=== PATIENT | female | born 2005 | race Caucasian/White ===

== ENCOUNTER → 2023-05-31 14:50 | Outpatient (REF) | payer BC, SELFPAY | LOC: HWRAD 14:50 | PROVIDERS: ATTENDING PHYSICIAN Pediatrics | DX: R63.4 Abnormal weight loss (principal) | CPT/HCPCS: 74177; Q9967 ==

== ENCOUNTER 2024-07-14 11:19 | Emergency (ER) | payer BC, SELFPAY ==
[2024-07-14 11:21] VITALS: BP 121/85
[2024-07-14 11:49] LABS: % Basophils 0.4 % (0-2); % Eosinophils 0.8 % (0-6); % Immature Granulocytes 0.2 % (0-0.5); % Lymphocytes 29.8 % (20.5-51.1); % Monocytes 7.4 % (1.7-9.3); % Neutrophils 61.4 % (42.2-75.2); Absolute Eosinophils 0.1 10^3/uL (0-0.7); Absolute Lymphocytes 2.7 10^3/uL (1.2-3.4); Absolute Monocytes 0.7 10^3/uL (0.1-0.6); Absolute Neutrophils 5.5 10^3/uL (1.4-6.5); Hematocrit 38.3 % (37.0-47.0); Mean Corp Hgb Conc. 33.9 g/dL (33.0-37.0); Mean Corpuscular Hgb 28.4 pg (27.0-31.0); Mean Corpuscular Volume 83.6 fL (81.0-99.0); Mean Platelet Volume 10.1 fL (7.4-10.4); Nucleated Red Blood Cells % 0 %; Platelet Count 197 10^3/uL (130-400); Red Blood Cell Count 4.58 10^6/uL (4.20-5.40); Red Cell Dist. Width 12.3 % (11.5-14.5); White Blood Cell Count 8.9 10^3/uL (4.8-10.8)
[2024-07-14 12:01] LABS: HCG, Serum Qualitative Screen Negative
[2024-07-14 12:05] LABS: ALT (SGPT) 13 U/L (0-35); AST (SGOT) 18 U/L (14-36); Albumin 4.2 g/dl (3.5-5.0); Alkaline Phosphatase 46 U/L (38-126); Blood Urea Nitrogen 14 mg/dl (7-17); Calcium 9.4 mg/dl (8.4-10.2); Carbon Dioxide 26 mmol/L (22-30); Chloride 110 mmol/L (98-107); Glucose 68 mg/dl (70-99); Potassium 3.9 mmol/L (3.5-5.1); Sodium 141 mmol/L (135-145); Total Bilirubin 0.9 mg/dl (0.2-1.3); Total Protein 6.9 g/dl (6.3-8.2); eGFR > 60.00
[2024-07-14 12:13] LABS: Urine Albumin Negative (Neg - Trace); Urine Bilirubin Negative (Negative); Urine Character Clear (Clear); Urine Color Yellow; Urine Glucose Negative (Negative); Urine Ketone Negative (Negative); Urine Leukocyte 3+ (Negative); Urine Nitrite Negative (Negative); Urine Occult Blood 2+ (Negative); Urine Urobilinogen Negative (Neg - 1+)
[2024-07-14 13:17] LABS: Urine Squamous Cell 16-20 /LPF (Few)
[2024-07-14 13:18] LABS: Urine Amorphous Seen
[2024-07-14 13:19] LABS: Urine Red Blood Cell 0-2 /HPF (0-2)
--- NOTE | 2024-07-14 13:21 | ED.GENMED ---
History of Present Illness
General
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
Source: patient
Exam Limitations: none
Time Seen by Provider: 07/14/24 12:05
Nursing documentation reviewed up to this point in time: agreed with
History of Present Illness
History of Present Illness:
Patient is a 18-year-old female presenting to the emergency department for evaluation of vaginal bleeding. Patient states she had sex with first time on Saturday night preceding onset of vaginal bleeding. She reports that immediately following
intercourse she had significant bright red bleeding. Bleeding has slowed down although she reports persistent spotting over the past few days. She denies any abdominal pain, pelvic pain, vaginal discomfort. She denies any
lightheadedness/dizziness or shortness of breath.
Patient has never been seen by an [facility]FACT[employer]ING TECHNICIAN. She did contact her therapist occupational who recommended she come to the emergency department for further evaluation.
LMP 2 weeks ago.
Review of Systems
Review of Systems
Allergies reviewed?: Yes
All Other Systems: ROS reviewed and negative except as documented in HPI and ROS
Phy Exam
Physical Exam
Physical Exam:
Vitals: Tachycardic on arrival, otherwise vital signs stable. Afebrile
General: Patient is well appearing, no acute distress
Skin: Warm and dry, no rashes or lesions
Head: Normocephalic, atraumatic
Eyes: Sclera nonicteric.
Throat: Protecting airway
Neck: Normal ROM, no cervical spine tenderness, no meningismus
Cardiac: Regular rate and rhythm, no murmurs.
Pulm: Lungs clear bilaterally.
.
Abdomen: Abdomen soft and nontender. No rebound tenderness or guarding. No palpable masses.
Pelvic: External genitalia normal appearing without lesions, ulcerations, or adenopathy. No active bleeding from vaginal introitus. Patient unable to tolerate speculum exam due to discomfort. Bimanual exam deferred by patient
Extremities: No evidence of cyanosis or edema
Neuro: AAOx3. Grossly intact.
Psychiatric: Normal affect.
Course
Orders/Labs/Results
Orders:
Orders
07/14/24 11:26
Test Result ONCE
07/14/24 11:39
Complete Blood Count/With Diff Urgent
Comprehensive Metabolic Panel Urgent
HCG, Serum Qualitative Screen Urgent
Urinalysis Reflex To Culture Urgent
Date Specimen was Collected: 07/14/24
Time Specimen was Collected: 11:
Urine Microscopic Reflex Cult Urgent
Urine Culture Urgent
JUAN Source: U
Specimen Description:
Date Specimen was Collected: 07/14/24
Time Specimen was Collected: 11:
Abnormal Lab Results
07/14/24
11:39
Absolute Monos (auto) 0.7 H 10^3/uL
(0.1-0.6)
Chloride 110 H mmol/L
(98-107)
Glucose 68 L mg/dl
(70-99)
Ur Occult Blood Reflex 2+ A
(Negative)
Leukocyte Esterase Rfl 3+ A
(Negative)
07/14/24 11:39
07/14/24 11:39
Vital Signs
Initial and Last Documented VS:
Initial Vital Signs
Temp Pulse Resp BP Pulse Ox
97.6 F 113 16 121/85 100
07/14/24 11:21 07/14/24 11:21 07/14/24 11:21 07/14/24 11:21 07/14/24 11:21
Last Documented Vital Signs
Temp Pulse Resp BP Pulse Ox
97.6 F 113 16 121/85 100
07/14/24 11:21 07/14/24 11:21 07/14/24 11:21 07/14/24 11:21 07/14/24 11:21
MDM/Problems Addressed
Differential Diagnosis Includes:
Not limited to: Hymen rupture, vaginitis, cervicitis, cervical ectropion, vaginal laceration, cervical laceration, etc.
MDM/Problems Addressed:
18-year-old female with vaginal spotting X2 days following intercourse. This started following patient's first time having sexual intercourse. She had heavier bleeding immediately following intercourse although now with spotting. No fevers, chills,
urinary symptoms. No abdominal pain, pelvic pain, or vaginal discomfort. Patient describes spotting as light. Vitals stable. Physical exam as above. Patient well appearing, in no distress. Abdomen soft and nontender with no tenderness in pelvic
region. Basic labs were sent in triage without significant abnormalities. test negative urine without significant findings. Patient not describing heavy bleeding. Suspect likely secondary to minor trauma/hymen rupture during intercourse.
However � will perform pelvic exam.
Update: Patient unable to tolerate speculum exam in ED secondary to discomfort. She declined bimanual exam. She has never had pelvic exam before. External genitalia without any obvious abnormalities. No visible bleeding from vaginal introitus. No
obvious signs of trauma. Overall impression is likely minor bleeding secondary to minor trauma/hymen rupture from first time intercourse. Unable to completely exclude more serious etiology, including cervical ectropion, cervical polyp, laceration,
etc. She will require follow-up with OBGYN for pelvic exam/further evaluation an routine OBGYN care. Patient expressed verbal understanding. Return precautions discussed.
Chronic conditions affecting care:
N/A
Acute Exacerbation and/or Progression of Chronic Illness:
N/A
*Pulse Oximetry
Patient hypoxic: no
*EKG
Interpreted by ED Provider?: NA
*Mechanic Driver Interpretation
Rate: Mechanic Driver- N/A
*Critical Care Note
Total Time (30-74mins, 75-104mins- exclusive of procedures): Not Applicable
ED Attending Note
-
Portions of this chart may have been created with voice recognition software.� Occasional wrong word or��sound alike� substitutions may have occurred due to the inherent limitations of voice recognition software.
Discharge Plan
Departure
Patient Disposition: Home (Routine Discharge)
Date of Disposition: 07/14/24
Time of Disposition: 14:00
Patient with high blood pressure during this ER visit?: No
Condition: Good
Covid-19: Not Applicable
Discharge Problem:
Vaginal bleeding
Instructions: Bleeding between periods
Prescriptions:
No Action
No Current Medications
0
Referrals:
Tiffany Mcneill MD [Active] - Call in 1-3 days for appt
Tonia Dawn DO [Family Provider] - Tomorrow
Activity Restrictions/Additional Instructions:
RETURN TO THE EMERGENCY DEPARTMENT IF YOU HAVE ANY PERSISTENT, HEAVY VAGINAL BLEEDING, LIGHTHEADEDNESS/DIZZINESS, SHORTNESS OF BREATH, SEVERE ABDOMINAL OR PELVIC PAIN, WORSENING CURRENT SYMPTOMS, OR ANY OTHER CONCERNS
- Discussed your lab work showed no acute abnormalities. Your test was negative. Your urine showed no evidence of infection.
- Given that you are unable to tolerate a pelvic exam in the department�you should follow closely with [employer]FACT[employer] TECHNICIAN for further evaluation/management.
- Contact information for a FAMILY LAWYER provided above. You can also follow-up with your primary care for further evaluation/manage
Monitor your symptoms closely and return to the emergency department for any acute worsening/new symptoms or any other concerns
Interventions
Interventions:
*Risk Screen - Suicide Last Done: 07/14/24 11:21
*General Assessment Last Done: 07/14/24 11:21
*Neglect/Abuse Screening Last Done: 07/14/24 11:21
*ED COVID-19 Vaccine History Last Done: 07/14/24 11:21
*Nursing Disposition Last Done: 07/14/24 14:22
ED-Female Genitourinary Assessment Last Done: 07/14/24 13:15
Discharge Date and Time
Discharge Date/Time: 07/14/24 14:23
Print Language: CHINESE
== END 2024-07-14 14:23 | disposition home or self-care (01) ==
LOC: EMR 11:19
PROVIDERS: EMERGENCY PHYSICIAN Student in an Organized Health Care Education/Training Program; FAMILY PHYSICIAN Pediatrics
DX: N93.9 Abnormal uterine and vaginal bleeding, unspecified (principal)
CPT/HCPCS: 99283; 80053; 81003; 81015; 84703; 85025; 87086